=== PATIENT | male | born 1955 | race Caucasian/White ===

== ENCOUNTER 2017-12-15 17:34 | Emergency (ER) | payer BC ==
[2017-12-15 20:04] VITALS: BP 119/70
--- NOTE | 2017-12-15 20:26 | UC ---
Truncal Trauma HPI - HPI Summary HPI Summary: Slipped on ice this morning. Landed on the right side. Pushed in on the area and heard a pop with increased pain. C/O possible broken ribs. - History Of Current Complaint Chief Complaint: UCBackPain Stated Complaint: S/P FALL RIGHT LOWER BACK/RIB INJURY Time Seen by Provider: 12/15/17 20:10 Hx Obtained From: Patient Onset/Duration: Sudden Onset - this morning, Still Present Onset Of Pain: Immediate Severity Initially: Moderate Severity Currently: Mild Pain Intensity: 5 Mechanism Of Injury: Blunt Trauma, Fall From A Standing Position Aggravating Factor(s): Movement, Deep Breathing, Cough Alleviating factor(s): Ice Associated Signs And Symptoms: Positive: Chest Pain - Allergies/Home Medications Allergies/Adverse Reactions: Allergies Allergy/AdvReac Type Severity Reaction Status Date / Time No Known Allergies Allergy Verified 12/15/17 20:04 Home Medications: Home Medications Ibuprofen 800 mg PO 12/15/17 [History] PMH/Surg Hx/FS Hx/Imm Hx Previously Healthy: Yes - Surgical History Surgical History: Yes Surgery Procedure, Year, and Place: bilateral hips resurfaced 2008, femoral hernia repair, appy - Family History Known Family History: Positive: Other - Dad and brother (57) with prostate ca. Negative: Cardiac Disease, Hypertension, Diabetes, Renal Disease - Social History Occupation: Employed Full-time Lives: With Family Alcohol Use: None Substance Use Type: None Smoking Status (MU): Never Smoked Tobacco Review of Systems Cardiovascular: Chest Pain - from the trauma Is Patient Immunocompromised?: No All Other Systems Reviewed And Are Negative: Yes Physical Exam Triage Information Reviewed: Yes Appearance: Well-Appearing, No Pain Distress, Well-Nourished Vital Signs: Initial Vital Signs Temp 97.6 F 12/15/17 19:59 Pulse 67 12/15/17 19:59 Resp 18 12/15/17 19:59 BP 119/70 12/15/17 19:59 Pulse Ox 96 12/15/17 19:59 Vital Signs Reviewed: Yes Eyes: Positive: Conjunctiva Clear Neck exam: Normal Respiratory Exam: Normal Cardiovascular Exam: Normal Musculoskeletal: Positive: Other: - tenderness posterior chest wall, lower rib cage, point tender. Neurological Exam: Normal Psychological Exam: Normal Skin Exam: Normal Truncal Trauma Course/Dx - Differential Dx/Diagnosis Differential Diagnosis/HQI/PQRI: Chest Wall Contusion, Chest Wall Abrasion, Rib Fracture Provider Diagnoses: Contusion posterior thorax Discharge - Discharge Plan Condition: Stable Disposition: HOME Patient Education Materials: Rib Contusion (ED) Referrals: Aroldo Nails MD [Primary Care Provider] -
--- NOTE | 2017-12-15 20:50 | RAD ---
Indication: RIGHT lower posterior rib pain post fall. Comparison: July 01, 2016 CT abdomen. Technique: PA chest and 4 view RIGHT rib series. Report: RIGHT inferolateral skin marker noted indicating the site of clinical concern. Negative for RIGHT rib fracture, pleural effusion, or pneumothorax. Variant articulation at the lateral segment of the RIGHT first rib which may represent sequela of a remote fracture. Clear lungs. IMPRESSION: Negative for acute RIGHT rib fracture or pneumothorax.
== END 2017-12-15 20:48 | disposition home or self-care (01) ==
LOC: UCCORT 17:34
DX: S20.221A Contusion of right back wall of thorax, initial encounter (principal); W00.0XXA Fall on same level due to ice and snow, initial encounter; Y93.9 Activity, unspecified; Y92.9 Unspecified place or not applicable
CPT/HCPCS: 99211; G0463

== ENCOUNTER 2018-01-22 05:38 | Emergency (ER) | payer BC ==
[2018-01-22] MEDS ORDERED: NS 0.9% 1000 ML* 1,000 ML IV ONE (05:57)
[2018-01-22] MEDS ORDERED: Morphine INJ* 4 MG/ML 1 ML SYRINGE (NEW SYRINGE VERSION) IV ONE (05:57)
[2018-01-22] MEDS ORDERED: Ketorolac INJ* 15 MG/ML 1 ML VIAL IV PUSH ONE (05:57)
[2018-01-22] MEDS ORDERED: Metoclopramide IV* 5 MG/ML 2 ML VIAL IV SLOW PU ONE (05:57)
[2018-01-22 06:39] LABS: ABS Basophils 0 10^3/ul (0-0.2); ABS Eosinophils 0.1 10^3/ul (0-0.6); ABS Lymphocytes 1.1 10^3/ul (1.0-4.8); ABS Monocytes 0.5 10^3/ul (0-0.8); ABS Neutrophils 6.7 10^3/ul (1.5-7.7); ABS Nucleated RBC 0 10^3/ul; Eosinophil % 0.8 % (0-6); Hematocrit 42 % (42-52); Hemoglobin 14.3 g/dl (14.0-18.0); Lymphocyte % 13.4 % (25-47); Mean Corpuscular HGB Conc 34 g/dl (31-36); Mean Corpuscular Hemoglobin 29 pg (27-31); Mean Corpuscular Volume 85 fL (80-94); Mean Platelet Volume 8 um3 (7.4-10.4); Nucleated Red Blood Cells % 0; Platelet Count 182 10^3/ul (150-450); Red Blood Count 4.95 10^6/ul (4.0-5.4); Red Cell Distribution Width 14 % (10.5-15); White Blood Count 8.4 10^3/ul (3.5-10.8)
[2018-01-22] MEDS ORDERED: Tamsulosin CAP* 0.4 MG PO ONE (06:48)
[2018-01-22 06:56] LABS: EGFR Non-African American 64.9 (>60)
--- NOTE | 2018-01-22 06:57 | ED ---
Jazmin Leon Thomas, scribed for Clint Harp MD on 01/22/18 at 0626 . Abdominal Pain/Male - HPI Summary HPI Summary: The patient is a 62 year old male presenting with sudden-onset RLQ pain that began six hours ago. He has been dry heaving. He denies urinary symptoms. He has a history of kidney stones. - History of Current Complaint Chief Complaint: EDAbdPain Stated Complaint: FLANK PAIN, VOMITING Time Seen by Provider: 01/22/18 05:48 Hx Obtained From: Patient Onset/Duration: Sudden Onset, Lasting Hours - 6, Still Present Timing: Constant Severity Currently: Severe Pain Intensity: 9 Pain Scale Used: 0-10 Numeric Location: Discrete At: RLQ Aggravating Factor(s): Nothing Alleviating Factor(s): Nothing Associated Signs And Symptoms: Positive: Nausea, Other - Dry heaves. Negative: Urinary Symptoms - Allergies/Home Medications Allergies/Adverse Reactions: Allergies Allergy/AdvReac Type Severity Reaction Status Date / Time No Known Allergies Allergy Verified 12/15/17 20:04 PMH/Surg Hx/FS Hx/Imm Hx History: Reports: Hx Kidney Stones Sensory History: Denies: Hx Legally Blind, Hx Deafness EENT History: Denies: Hx Deafness - Surgical History Surgery Procedure, Year, and Place: bilateral hips resurfaced 2008, femoral hernia repair, appy - Immunization History Date of Influenza Vaccine: has not recieved Infectious Disease History: No Infectious Disease History: Denies: Traveled Outside the [place] in Last 30 Days - Family History Known Family History: Positive: Other - Dad and brother (57) with prostate ca. Negative: Cardiac Disease, Hypertension, Diabetes, Renal Disease - Social History Alcohol Use: None Substance Use Type: Reports: None Smoking Status (MU): Never Smoked Tobacco Review of Systems Negative: Fever Positive: Abdominal Pain - RLQ, Nausea, Other - Dry heaving Positive: no symptoms reported All Other Systems Reviewed And Are Negative: Yes Physical Exam - Summary Physical Exam Summary: VITAL SIGNS: Reviewed. GENERAL: Patient is a well-developed and nourished male who is lying comfortable in the stretcher. Patient is not in any acute respiratory distress. HEAD AND FACE: No signs of trauma. No ecchymosis, hematomas or skull depressions. No sinus tenderness. EYES: PERRLA, EOMI x 2, No injected conjunctiva, no nystagmus. EARS: Hearing grossly intact. Ear canals and tympanic membranes are within normal limits. MOUTH: Oropharynx within normal limits. NECK: Supple, trachea is midline, no adenopathy, no JVD, no carotid bruit, no c- spine tenderness, neck with full ROM. CHEST: Symmetric, no tenderness at palpation LUNGS: Clear to auscultation bilaterally. No wheezing or crackles. CVS: Regular rate and rhythm, S1 and S2 present, no murmurs or gallops appreciated. ABDOMEN: Soft, non-tender. No signs of distention. No rebound no guarding, and no masses palpated. Bowel sounds are normal. BACK: Mild right CVA tenderness. EXTREMITIES: FROM in all major joints, no edema, no cyanosis or clubbing. NEURO: Alert and oriented x 3. No acute neurological deficits. Speech is normal and follows commands. SKIN: Dry and warm Triage Information Reviewed: Yes Vital Signs On Initial Exam: Initial Vitals Temp Pulse Resp BP Pulse Ox 97.1 F 74 24 150/77 97 01/22/18 05:39 01/22/18 05:39 01/22/18 05:39 01/22/18 05:39 01/22/18 05:39 Vital Signs Reviewed: Yes Diagnostics - Vital Signs Vital Signs Temp Pulse Resp BP Pulse Ox 01/22/18 06:11 16 01/22/18 05:39 97.1 F 74 24 150/77 97 - Laboratory Result Diagrams: 01/22/18 06:10 Lab Statement: Any lab studies that have been ordered have been reviewed, and results considered in the medical decision making process. - CT CT Abd/Pel CT Interpretation: Positive (See Comments) - Minimal right hydroneprhosis and proximal through at least mid hydroureter, which could be due to a stone in the distal ureter or bladder. Pelvis evaluation markedly limited by metallic streak artifact from bilateral hip arthroplasties, but a 3 mm density in expected region of the right UVJ on axial image 149 may represent a stone. Unremarkable pancreas and gallbladder. No bowel obstruction, colitis, free fluid or free air. Appendix not seen with certainty. No pericecal inflammation to suggest acute appendicitis. Diverticulosis colon without definite acute diverticulitis. Small umbilical and supraumbilical ventral hernias containing fat. Dr. Harp has reviewed this report. CT Interpretation Completed By: Radiologist Abdominal Pain Fem Course/Dx - Course Assessment/Plan: The patient is a 62 year old male presenting with sudden-onset RLQ pain that began six hours ago. He has a history of kidney stones. In the ED course the patient was given Toradol, Reglan, morphine, and IV fluids. Bloodwork is ordered. CT Abd/Pel shows "Minimal right hydroneprhosis and proximal through at least mid hydroureter, which could be due to a stone in the distal ureter or bladder. Pelvis evaluation markedly limited by metallic streak artifact from bilateral hip arthroplasties, but a 3 mm density in expected region of the right UVJ on axial image 149 may represent a stone. Unremarkable pancreas and gallbladder. No bowel obstruction, colitis, free fluid or free air. Appendix not seen with certainty. No pericecal inflammation to suggest acute appendicitis. Diverticulosis colon without definite acute diverticulitis. Small umbilical and supraumbilical ventral hernias containing fat". The patient will be signed out to Dr. Ulrich to follow up on the urine results and disposition. - Diagnoses Provider Diagnoses: Right ureteral stone, Renal colic Discharge - Sign-Out/Discharge Documenting (check all that apply): Sign-Out Patient Signing out patient TO: Kee Ulrich - Discharge Plan Referrals: Aroldo Nails MD [Primary Care Provider] - The documentation as recorded by the Jazmin diaz Thomas accurately reflects the service I personally performed and the decisions made by , Clint Harp MD.
[2018-01-22 07:56] LABS: Urine Appearance Clear; Urine Blood Negative (Negative); Urine Color Yellow; Urine Ketones Negative (Negative); Urine Protein Negative (Negative); Urine Urobilinogen Negative (Negative)
[2018-01-22 08:05] VITALS: BP 122/73
--- NOTE | 2018-01-22 08:13 | RAD ---
Indication: Abdominal pain. CT of the abdomen and pelvis was performed without oral or IV contrast administration. Coronal and sagittal reconstructed images were obtained. Lung bases demonstrate some atelectasis in the lingula. No pleural fluid or nodules are identified. The heart demonstrates no pericardial effusion. The liver is normal in size. No focal lesions or intrahepatic ductal dilatation is noted. The gallbladder demonstrates no calcified gallstones. The common duct is not dilated. The spleen is normal in size. No adrenal masses are noted. The kidneys demonstrates right hydronephrosis and hydroureter. Enlargement of the right kidney is noted with perinephric infiltration of fat. There may be a calculus at the right ureterovesicular junction although metallic artifact from bilateral hip replacement obscures exact location. Multiple calcifications are noted in the prostate. No retroperitoneal adenopathy is noted. Left kidney is unremarkable. No dilated loops of bowel are noted. IMPRESSION: Right hydronephrosis and right hydroureter. Streak artifact from hip replacement obscures the pelvis there is suggestion of a calculus near the region of the right ureterovesicular junction measuring approximately 2 to 3 mm. Appendix is not visualized.
--- NOTE | 2018-01-22 08:28 | ED ---
Milagros Leon Julia, scribed for Kee Ulrich MD on 01/22/18 at 0716 . Progress - Progress Note Progress Note: Patient is signed out from Dr. Harp, awaiting urine analysis results and disposition. Course/Dx - Course Course Of Treatment: Mr. Sharpe remained stable here in the ED and was requesting D/C intermittently. His U/A showed no evidence for infection and he was sent prescriptions for flomax and percocet. - Diagnoses Provider Diagnoses: Right ureteral stone Discharge - Sign-Out/Discharge Documenting (check all that apply): Receiving Sign-Out Receiving patient FROM: Clint Harp - Discharge Plan Condition: Stable Disposition: HOME Prescriptions: oxyCODONE/Acetamin 5/325 MG* [Percocet 5/325 TAB*] 1 tab PO Q6H PRN #20 tab MDD 4 PRN Reason: Pain Patient Education Materials: Kidney Stones (ED) Referrals: Sunil Brand MD [Medical Doctor] - As Soon As Possible (Follow up with Dr. Brand, or another urologist as soon as possible.) - Billing Disposition and Condition Condition: STABLE Disposition: HOME The documentation as recorded by the Milagros diaz Julia accurately reflects the service I personally performed and the decisions made by , Kee Ulrich MD.
== END 2018-01-22 08:04 | disposition home or self-care (01) ==
LOC: ED 05:38
DX: N20.1 Calculus of ureter (principal); R10.31 Right lower quadrant pain
CPT/HCPCS: 36415; 74176; 80053; 81003; 81015; 83735; 85025; 86140; 87086; 96374; 96375; 99282; J1885; J2270; J2765